=== PATIENT | female | born 1970 | race Caucasian/White ===

== ENCOUNTER 2024-02-29 08:44 | Outpatient (AMB) | payer OTHER, SELFPAY ==
--- NOTE | 2024-02-29 08:49 | AM.OFFWIN_ITS ---
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 Intake Note: pt is here today for yeast infection started 1 month ago Patient Tobacco Use Status: Current everyday Tobacco user Allergies No Known Allergies Allergy (Verified 02/29/24 08:58) Do you need a note to return to daycare/school/sports/work: No HPI HPI Comments History of Present Illness Details Patient presents to the walk in for sick visit reports vaginal itching, burning and white discharge for nearly one month Denies chance of , denies concern for STI denies abd pain, back pain, nausea, vomiting, diarrhea, fevers, chills Endorses polydipsia and polyuria. Denies syncope, weakness, dizziness, blurry vision, headaches family HX of DM, patient has not been diagnosed in the past but has not seen a pcp in 10 years [facility] Social History Patient Tobacco Use Status: Current everyday Tobacco user Review of Systems Const All systems reviewed & are unremarkable except as noted in HPI and below Physical Exam Vital Signs: Last Vital Signs Temp 97.4 F 02/29/24 08:51 Pulse 94 02/29/24 08:51 BP 130/80 02/29/24 08:51 Pulse Ox 96 02/29/24 08:51 Oxygen Delivery Method Room Air 02/29/24 08:51 BMI result Body Mass Index 48.9 General: awake, alert, oriented. Answers questions appropriately. Fully engaged in examination. Skin: warm, dry, intact HEENT: Normocephalic. Hearing intact. Cardiac: External chest normal in appearance. Respiratory: No cough, audible wheezing or stridor. Abdomen: without gross distension. Soft, nontender. No guarding. Pelvic exam declined. MS: No obvious swelling or deformities. Neurological: Oriented to person, place, time and situation. Thought process intact. No gait abnormalities appreciated. Psychiatric: Appropriate mood and affect. Good judgment and insight. Results AMB Urinalysis, Automated UA Leukoctes 0 Luis/uL Last Edit by Roshan Lemus MA on 02/29/24 09:23 UA Nitrite Negative Last Edit by Roshan Lemus MA on 02/29/24 09:23 UA Urobilinogen 0.2 mg/dL Last Edit by Roshan Lemus MA on 02/29/24 09:23 UA Protein 0 mg/dL Last Edit by Roshan Lemus MA on 02/29/24 09:23 UA pH 6.0 Last Edit by Roshan Lemus MA on 02/29/24 09:23 UA Blood 0 Mateo/uL Last Edit by Roshan Lemus MA on 02/29/24 09:23 UA Specific [place] 1.010 Last Edit by Roshan Lemus MA on 02/29/24 09:23 UA Ketone Negative Last Edit by Roshan Lemus MA on 02/29/24 09:23 UA Bilirubin 0 mg/dL Last Edit by Roshan Lemus MA on 02/29/24 09:23 UA Glucose 1000 mg/dL Last Edit by Roshan Lemus MA on 02/29/24 09:23 Results Reviewed Results Reviewed: Laboratory Last Values Urine pH (Auto) 6.0 02/29/24 09:22 Specific [place] (Auto) 1.010 02/29/24 09:22 Urine Protein (Auto) 0 mg/dL 02/29/24 09:22 Glucose (UA)(Auto) 1000 mg/dL 02/29/24 09:22 Urine Ketones (Auto) Negative 02/29/24 09:22 Urine Blood (Auto) 0 Mateo/uL 02/29/24 09:22 Urine Nitrite (Auto) Negative 02/29/24 09:22 Urine Bilirubin (Auto) 0 mg/dL 02/29/24 09:22 Urine Urobilinogen (Auto) 0.2 mg/dL 02/29/24 09:22 Leukocyte Esterase (Auto) 0 Luis/uL 02/29/24 09:22 UA reviewed: Negative leuks, negative nitrites. 3+ glucose. Assessment & Plan Assessment & Plan (1) Vaginal yeast infection: Code(s): B37.31 - Acute candidiasis of vulva and vagina (2) Glycosuria: Code(s): R81 - Glycosuria (3) Diabetes: Code(s): E11.9 - Type 2 diabetes mellitus without complications (4) Diabetes education, encounter for: Code(s): Z71.89 - Other specified counseling Plan Fluconazole 150mg po as directed Random glucose 267, hemoglobin A1c 10.6. These results were reviewed with the patient. Will start on metformin 500 mg p.o. b.i.d.. Patient advised on use and potential side effects. follow up with pcp latisha, staff assisted in getting her an appointment on 03/10/2024. Stressed the importance of making sure she gets to this appointment. Lengthy discussion with the patient regarding new diagnosis of diabetes and treatment plan. Recommend lifestyle modifications including dietary changes and increased exercise. Will need eye exam and foot exam. Patient to establish care with these specialty providers. Patient verbalized understanding. Return to walk-in for any new or worsening symptoms Follow up with pcp as planned Discussed red flag symptoms and when to seek treatment in the ER. Orders: Orders Hemoglobin A1c Today R63.1 - Polydipsia Complete Blood Count Auto Diff Today R63.1 - Polydipsia Comprehensive Met. Panel Today R63.1 - Polydipsia Medications: New fluconazole may repeat second dose 72 hrs after first dose if symptoms persist 150 mg PO Q3D 2 tabs 0RF 2 doses Coding Level of Care Code New Pt Level 4 (43736) Diagnoses Vaginal yeast infection B37.31 Glycosuria R81 Diabetes E11.9 Diabetes education, encounter for Z71.89
[2024-02-29 08:51] VITALS: BP 130/80; PULSE 94; TEMP 36.3; O2SAT 96; BMI 48.9
== END 2024-02-29 09:45 | disposition home or self-care (01) ==
PROVIDERS: Visit Provider Registered Nurse Emergency
DX: B37.31 Acute candidiasis of vulva and vagina (principal); R81 Glycosuria; E11.9 Type 2 diabetes mellitus without complications; Z71.89 Other specified counseling
CPT/HCPCS: 99204

== ENCOUNTER 2024-02-29 09:34 | Outpatient (REF) | payer OTHER, SELFPAY ==
[2024-02-29 10:58] LABS: MANUAL DIFF FLAG NO
[2024-02-29 11:04] LABS: Basophils Absolute Auto 0.1 X10*3/uL (0.0-0.2); Basophils Percent Auto 0.7 % (0-2); Eosinophils Absolute Auto 0.2 X10*3/uL (0.0-0.4); Eosinophils Percent Auto 2.7 % (0-4); Hematocrit 38.5 % (37.0-47.0); Hemoglobin 10.4 g/dl (12.0-16.0); Imm Gran Abs Auto 0.03 X10*3/uL (0.00-0.03); Imm Gran Pct Auto 0.3 % (0.0-0.4); Lymphocytes Percent Auto 21.9 % (20-40); Mean Corpuscular Hemoglobin 17.9 pg (27.0-33.0); Mean Corpuscular Volume 66.2 fL (80.0-98.0); Monocytes Absolute Auto 0.6 X10*3/uL (0.1-1.2); Neutrophils Absolute Auto 6.1 x10*3/uL (2.0-8.3); Neutrophils Percent Auto 67.4 % (45-73); Platelet Count 279 X10*3/uL (160-400); Red Blood Count 5.82 X10*6/uL (4.20-5.50); Red Cell Distribution Width 19.8 % (11.0-16.0)
[2024-02-29 11:17] LABS: Estimated Average Glucose 258 mg/dL; Hemoglobin A1c % 10.6 % (<6.0)
[2024-02-29 11:18] LABS: Alanine Aminotransferase 51 U/L (0-31); Albumin Level 4.1 g/dL (3.5-5.0); Alkaline Phosphatase 110 U/L (39-117); Anion Gap 14 (12-20); Aspartate Amino Transferase 43 U/L (5-31); Bilirubin Total 0.4 mg/dL (0.0-1.0); Blood Urea Nitrogen 10 mg/dL (9-16); Calcium 9.7 mg/dL (8.4-10.2); Carbon Dioxide 27 mmol/L (22-29); Chloride 101 mmol/L (96-108); Estimated Glomerular Filt Rate > 60; Glucose Random 267 mg/dL (60-115); Potassium 4.3 mmol/L (3.3-5.1); Sodium 138 mmol/L (135-145); Total Protein 8.1 g/dL (6.5-8.0)
== END 2024-02-29 09:35 | disposition home or self-care (01) ==
LOC: HO.HMGCLDS 09:34
PROVIDERS: Visit Provider Registered Nurse Emergency
DX: R63.1 Polydipsia (principal)
CPT/HCPCS: 36415; 80053; 83036; 85025

== ENCOUNTER 2024-03-10 08:40 | Outpatient (AMB) | payer OTHER, SELFPAY ==
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
[2024-03-10 08:56] VITALS: BP 118/74; PULSE 85; RESP 16; TEMP 36.9; O2SAT 98; BMI 49.6
== END 2024-03-10 10:06 | disposition home or self-care (01) ==
PROVIDERS: Visit Provider Internal Medicine
DX: B37.31 Acute candidiasis of vulva and vagina (principal); R81 Glycosuria; E11.65 Type 2 diabetes mellitus with hyperglycemia; F40.298 Other specified phobia; Z71.89 Other specified counseling
CPT/HCPCS: 99214

== ENCOUNTER 2024-03-10 10:10 | Outpatient (REF) | payer OTHER, SELFPAY ==
[2024-03-10 12:27] LABS: Appearance Urine Cloudy; Color Urine Yellow; Glucose Urine UA >=1000 mg/dL (Negative); Leukocyte Esterase Urine Negative (Negative); Nitrite Urine Positive (Negative); PH 5.5 (5.0-9.0); UMIC TRIGGER UACC YES; Urine Blood Negative (Negative); Urine Ketones Negative (Negative); Urine Protein Negative (Neg-Trace)
[2024-03-10 13:01] LABS: Bacteria Urine 4+ (None Seen); Hyaline Casts Urine 0-2 /LPF (0-2); RBC Urine 0-2 /HPF (0-2); UACC Culture Trigger YES; WBC Urine 0-5 /HPF (0-5)
== END 2024-03-10 10:11 | disposition home or self-care (01) ==
LOC: HO.WFDLDS 10:10
PROVIDERS: Visit Provider Internal Medicine
DX: F40.298 Other specified phobia (principal); E11.9 Type 2 diabetes mellitus without complications; R81 Glycosuria
CPT/HCPCS: 81001; 81003; 87086; 87147

== ENCOUNTER 2024-04-05 08:26 | Outpatient (REF) | payer OTHER, SELFPAY ==
--- NOTE | ~2024-04-05 | MM_ITS ---
EXAMINATION: MM SCREENING DIGITAL BREAST TOMOSYNTHESIS, BILATERAL CLINICAL INFORMATION: Screening. Asymptomatic. COMPARISON: Mammography: This study is compared with prior exams dating back to 2015 TECHNIQUE: Digital breast tomosynthesis is performed in both the craniocaudal and mediolateral oblique views along with computer-aided detection (CAD). Synthesized 2D images are generated from the tomosynthesis. FINDINGS: There are scattered areas of fibroglandular density (ACR BI-RADS breast composition Category b). There are no significant masses, abnormal calcifications, or other abnormalities. MM/MM tomosynthesis screening BI IMPRESSION: No mammographic evidence of malignancy. ASSESSMENT: BI-RADS BI-RADS 1 - Negative RECOMMENDATION: Routine annual mammography screening. 1 year F/U This examination should not preclude the clinical evaluation of a suspicious palpable abnormality. This patient's information was entered into a reminder system with a target due date for their next mammogram.
== END 2024-04-05 08:27 | disposition home or self-care (01) ==
LOC: HO.MAMMO 08:26
PROVIDERS: PCP Internal Medicine; Visit Provider Internal Medicine
DX: Z12.31 Encounter for screening mammogram for malignant neoplasm of breast (principal)
CPT/HCPCS: 77063; 77067

== ENCOUNTER → 2024-04-05 08:45 | Outpatient (BNV) | payer OTHER, SELFPAY | PROVIDERS: PCP Internal Medicine; Visit Provider Radiology Diagnostic Radiology | DX: Z12.31 Encounter for screening mammogram for malignant neoplasm of breast (principal) | CPT/HCPCS: 77063; 77067 ==

== ENCOUNTER 2024-05-17 08:39 | Outpatient (AMB) | payer OTHER, SELFPAY ==
[2024-05-17 09:00] VITALS: BP 133/67; PULSE 80; O2SAT 98; BMI 45.3
--- NOTE | 2024-05-17 09:00 | MHC.PC.OV ---
Vital Signs 05/17/24 09:00 Height 5 ft 3 in Weight 256 lb BMI 45.3 BP 133/67 Blood Pressure Location Lt brachial Position Sitting Pulse 80 Pulse Source Pulse Oximeter Pulse Oximetry (%) 98 Oxygen Delivery Method Room Air Intake Visit Reasons: DM 1/2 h Intake Note: Patient is here to discuss DM. Patient reports she is needs for sensors and would like to discuss medications and the ability to get ahold of the office. Advertising Traffic Manager Required: No Accompanied by: Self / Same As Patient Allergies No Known Allergies Allergy (Verified 05/17/24 09:07) Tobacco use date assessed: 03/10/24 Dental Screening Dental Screen Date: 03/10/24 HPI HPI Comments History of Present Illness Details 54 year old female with a past medical history of obesity, pmh gastric bypass, anemia, type 2 diabetes presenting for follow up Type 2 diabetes: Doing much better with glucose control. Reports most fasting glucose 100-150. No readings <70. She is phobic of needles. She is doing well on 2.5mg mounjaro weekly. Missing doses but mostly complianct with metformin ROS CONSTITUTIONAL: Denies weight loss, fever and chills. HEENT: Denies changes in vision and hearing. RESPIRATORY: Denies SOB and cough. CV: Denies palpitations and CP GI: Denies abdominal pain, nausea, vomiting and diarrhea. : Denies dysuria and urinary frequency. MSK: Denies new myalgia and joint pain. SKIN: Denies rash and pruritus. NEUROLOGICAL: Denies headache PSYCHIATRIC: Denies recent changes in mood. PHYSICAL EXAM: GENERAL: Alert and oriented x 3. NAD EYES: EOMI. Anicteric. HENT: Moist mucous membranes. No scleral icterus. No cervical lymphadenopathy. LUNGS: Clear to auscultation bilaterally. CARDIOVASCULAR: Regular rate and rhythm. No murmur. No JVD. ABDOMEN: Soft, non-tender +bs EXTREMITIES: No edema. Non-tender. SKIN: No rashes or lesions. Warm. NEUROLOGIC: No focal neurological deficits. CN II-XII grossly intact PSYCHIATRIC: Cooperative. 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 Hunter Olivo, Monique Middleton, Melo Sandhu and colleagues, with an educational zackary from [employer]. Physical exam (Primary Care) Vital Signs: Last Vital Signs Pulse 80 05/17/24 09:00 BP 133/67 05/17/24 09:00 Pulse Ox 98 05/17/24 09:00 Oxygen Delivery Method Room Air 05/17/24 09:00 BMI result Body Mass Index 45.3 Tobacco/Smoking Status: Tobacco use Status Tobacco use date assessed 03/10/24 05/17/24 09:09 Patient Tobacco Use Status Current everyday Tobacco 05/17/24 09:09 e-Cigarette/Vaping Use Never Used 05/17/24 09:09 Thrive Assessment: Date of Thrive Assessment Date Thrive assessed 03/10/24 05/17/24 09:09 Results AMB Hemoglobin A1c AMB Hemoglobin A1c 7.5 % Last Edit by Kaleigh Matthews CMA on 05/17/24 09:37 Results Reviewed Results Reviewed: Laboratory Last Values Hgb A1c (Clinic) 7.5 % (4.0-6.0) H 05/17/24 09:36 Assessment and Plan Assessment & Plan (1) Diabetes: Code(s): E11.9 - Type 2 diabetes mellitus without complications Qualifiers: Diabetes mellitus complication status: with hyperglycemia Diabetes mellitus half-way insulin use: without dedicated intermodal truck driver use Diabetes mellitus type: type 2 Qualified Code(s): E11.65 - Type 2 diabetes mellitus with hyperglycemia Plan: continue metformin, start mounjaro (2) Anemia: Code(s): D64.9 - Anemia, unspecified Qualifiers: Anemia type: unspecified type Qualified Code(s): D64.9 - Anemia, unspecified Plan: Referral to GI pending Orders: Orders AMB Hemoglobin A1c 05/17/24 E11.9 - Type 2 diabetes mellitus without complications Medications: New pen needle, diabetic (BD Ultra-Fine [place] Pen Needle) As directed 100 ea 3RF insulin glargine (Lantus Solostar U-100 Insulin) 10 units (0.1 mL) subcut QPM 15 mL 3RF Changed From FreeStyle Juan Pablo 3 Sensor (blood-glucose sensor) DIRECTED 1 ea 0RF NS E11.9 - Type 2 diabetes mellitus without complications, F40.298 - Other specified phobia, Z71.89 - Other specified counseling, Z79.4 - terminal press operator (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 of insulin To FreeStyle Juan Pablo 3 Sensor (blood-glucose sensor) DIRECTED change every 14 days 6 ea 3RF NS E11.9 - Type 2 diabetes mellitus without complications, F40.298 - Other specified phobia, Z71.89 - Other specified counseling, Z79.4 - terminal press operator (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 of insulin Refilled metformin ER 1,000 mg (2 x 500 mg) PO BID 360 tabs 3RF 90 days tirzepatide (Mounjaro) 5 mg (0.5 mL) subcut QWEEK 6 mL 3RF 12 weeks Discontinued metformin Discontinued Reason: Doctor's Order 500 mg PO BID 60 tabs 11RF Coding Level of Care Code Est Pt Level 4 (94641) Diagnoses Type 2 diabetes mellitus with hyperglycemia, without long-term current use of insulin E11.65 Diabetes mellitus complication status: with hyperglycemia Diabetes mellitus half-way insulin use: without dedicated intermodal truck driver use Diabetes mellitus type: type 2 Anemia, unspecified type D64.9 Anemia type: unspecified type
== END 2024-05-17 09:42 | disposition home or self-care (01) ==
PROVIDERS: PCP Internal Medicine; Visit Provider Internal Medicine
DX: E11.9 Type 2 diabetes mellitus without complications (principal)
CPT/HCPCS: 83036; 99214

== ENCOUNTER 2024-05-17 09:57 | Outpatient (REF) | payer OTHER, SELFPAY ==
[2024-05-17 11:15] LABS: MANUAL DIFF FLAG NO
[2024-05-17 11:24] LABS: Appearance Urine Cloudy; Color Urine Yellow; Glucose Urine UA Negative (Negative); Leukocyte Esterase Urine Trace (Negative); Nitrite Urine Positive (Negative); PH 5.5 (5.0-9.0); UMIC TRIGGER UACC YES; Urine Blood Negative (Negative); Urine Ketones Negative (Negative); Urine Protein Negative (Neg-Trace)
[2024-05-17 11:27] LABS: Basophils Absolute Auto 0.1 X10*3/uL (0.0-0.2); Basophils Percent Auto 0.9 % (0-2); Eosinophils Absolute Auto 0.2 X10*3/uL (0.0-0.4); Eosinophils Percent Auto 2.7 % (0-4); Hematocrit 40.3 % (37.0-47.0); Hemoglobin 11.2 g/dl (12.0-16.0); Imm Gran Abs Auto 0.02 X10*3/uL (0.00-0.03); Imm Gran Pct Auto 0.3 % (0.0-0.4); Lymphocytes Absolute Auto 1.9 X10*3/uL (1.2-4.9); Lymphocytes Percent Auto 24.6 % (20-40); Mean Corpuscular HGB Conc 27.8 g/dl (31.0-35.0); Mean Corpuscular Hemoglobin 18.2 pg (27.0-33.0); Mean Corpuscular Volume 65.5 fL (80.0-98.0); Mean Platelet Volume 9.8 fL (9.4-12.3); Monocytes Absolute Auto 0.6 X10*3/uL (0.1-1.2); Monocytes Percent Auto 7.5 % (2-11); Platelet Count 341 X10*3/uL (160-400); Red Blood Count 6.15 X10*6/uL (4.20-5.50); Red Cell Distribution Width 20.5 % (11.0-16.0); White Blood Count 7.8 X10*3/uL (4.8-10.8)
[2024-05-17 11:33] LABS: Estimated Average Glucose 154 mg/dL
[2024-05-17 11:43] LABS: Bacteria Urine 4+ (None Seen); Hyaline Casts Urine 0-2 /LPF (0-2); RBC Urine 0-2 /HPF (0-2); UACC Culture Trigger YES
[2024-05-17 12:10] LABS: Alanine Aminotransferase 35 U/L (0-31); Albumin Level 4.3 g/dL (3.5-5.0); Alkaline Phosphatase 90 U/L (39-117); Anion Gap 14 (12-20); Aspartate Amino Transferase 32 U/L (5-31); Bilirubin Total 0.4 mg/dL (0.0-1.0); Blood Urea Nitrogen 11 mg/dL (9-16); Calcium 9.6 mg/dL (8.4-10.2); Carbon Dioxide 26 mmol/L (22-29); Chloride 104 mmol/L (96-108); Cholesterol 121 mg/dL (<200); Estimated Glomerular Filt Rate > 60; Glucose Random 100 mg/dL (60-115); HDL Cholesterol 36 mg/dL (>40); Iron 27 mcg/dL (30-160); LDL Cholesterol Calculated 66 mg/dL (<100); Percent Iron Saturation 6 % (15-50); Potassium 4.2 mmol/L (3.3-5.1); Sodium 140 mmol/L (135-145); Total Iron Binding Capacity 443 mcg/dL (228-428); Triglycerides 95 mg/dL (<150); Unsaturated Iron Binding 416 ug/dL
[2024-05-17 12:46] LABS: Folate 8.6 ng/mL (> or = 4.0); Vitamin B12 310 pg/mL (200-900)
== END 2024-05-17 09:58 | disposition home or self-care (01) ==
LOC: HO.WFDLDS 09:57
PROVIDERS: Visit Provider Internal Medicine
DX: E11.9 Type 2 diabetes mellitus without complications (principal); Z71.89 Other specified counseling; B37.31 Acute candidiasis of vulva and vagina; R63.1 Polydipsia; R81 Glycosuria; D64.9 Anemia, unspecified
CPT/HCPCS: 36415; 80053; 80061; 81001; 82607; 82746; 83036; 83540; 85025; 87086; 87088; 87186

== ENCOUNTER 2024-09-16 08:23 | Outpatient (AMB) | payer OTHER, SELFPAY ==
--- NOTE | 2024-09-16 08:26 | MHC.PC.OV ---
Vital Signs 09/16/24 08:28 Height 5 ft 3 in Weight 248 lb BMI 43.9 BP 116/76 Blood Pressure Location Lt brachial Position Sitting Pulse 101 H Pulse Source Pulse Oximeter Pulse Oximetry (%) 97 Oxygen Delivery Method Room Air Intake Visit Reasons: diabetes 3 month recheck cholesterol Intake Note: Three months follow up. Urinary frequency. Allergies No Known Allergies Allergy (Verified 09/16/24 08:26) Tobacco use date assessed: 03/10/24 Dental Screening Dental Screen Date: 03/10/24 HPI HPI Comments History of Present Illness Details 54 year old female with a past medical history of obesity, pmh gastric bypass, anemia, type 2 diabetes presenting for follow up Type 2 diabetes: Todays A1C 6.1%Doing much better with glucose control. Reports most fasting glucose 100-150. No readings <70. She is phobic of needles. She is doing well on 5mg mounjaro weekly, 1000mg metformin and insulin. She would like to increase the mounjaro. Mammo UTD 06/2024 Cologuard is at her house ROS CONSTITUTIONAL: Denies weight loss, fever and chills. HEENT: Denies changes in vision and hearing. RESPIRATORY: Denies SOB and cough. CV: Denies palpitations and CP GI: Denies abdominal pain, nausea, vomiting and diarrhea. : Denies dysuria and urinary frequency. MSK: Denies new myalgia and joint pain. SKIN: Denies rash and pruritus. NEUROLOGICAL: Denies headache PSYCHIATRIC: Denies recent changes in mood. PHYSICAL EXAM: GENERAL: Alert and oriented x 3. NAD EYES: EOMI. Anicteric. HENT: Moist mucous membranes. No scleral icterus. No cervical lymphadenopathy. LUNGS: Clear to auscultation bilaterally. CARDIOVASCULAR: Regular rate and rhythm. No murmur. No JVD. ABDOMEN: Soft, non-tender +bs EXTREMITIES: No edema. Non-tender. SKIN: No rashes or lesions. Warm. NEUROLOGIC: No focal neurological deficits. CN II-XII grossly intact PSYCHIATRIC: Cooperative. 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 1. Little interest or pleasure in doing things: not at all 2. Feeling down, depressed, or hopeless: not at all 3. Trouble falling or staying asleep, or sleeping too much: more than half the days 4. Feeling tired or having little energy: several days 5. Poor appetite or overeating: several days 6. Feeling bad about yourself - or that you are a failure or have let yourself or your family down: not at all 7. Trouble concentrating on things, such as reading the newspaper or watching television: not at all 8. Moving or speaking so slowly that other people could have noticed. Or the opposite - being so fidgety or restless that you have been moving around a lot more than usual: not at all 9. Thoughts that you would be better off or of hurting yourself in some way: not at all Total score: 4 Depression Screening Interpretation: Negative Depression Screening Done: Yes 32500 - PHQ-9 Billing: Yes Source: Developed by Drs. Hunter Olivo, Monique Middleton, Melo Sandhu and colleagues, with an educational zackary from [employer]. Thrive Questionnaire Date Thrive assessed: 03/10/24 I am a: Patient What is your living situation today?: I have a steady place to live Within the past 12 months, did the food you bought not last and you didn't have the money to get more?: Sometimes True Within the past 12 months, did you worry whether your food would run out before you got money to buy more?: Often true Do you have trouble paying for medicines?: Yes Do you have trouble getting transportation to medical appointments?: Yes Do you have trouble paying your heating and electricity bill?: No Do you have trouble taking care of your child, family member or friend?: No Do you have trouble with day-to-day activities such as bathing, preparing meals, shopping, managing finances, etc.?: No Are you currently unemployed and looking for a job?: Yes Are you interested in more education?: No Please select the resources that you would like help with: Paying for medicine and Utilities Currently or been in a relationship where the following occur: I choose not to answer THRIVE Score: 3 AUDIT C Alcohol Use Questionnaire (AUDIT-C) 1. How often do you have a drink containing alcohol?: Never Total Score: 0 ERI-7 AMB Questionnaire ERI-7 Date ERI - 7 assessed: 03/10/24 Feeling nervous, anxious, or on edge: 0 = Not at all Not being able to stop or control worryin = Not at all Worrying too much about different things: 1 = Several days Trouble relaxin = Several days Being so restless that it is hard to sit still: 0 = Not at all Becoming easily annoyed or irritable: 1 = Several days Feeling afraid as if something awful might happen: 0 = Not at all Total ERI-7 score (0-4 normal; 5-9 mild; 10-14 moderate; 15-21 severe): 3 Source: Developed by Drs. Hunter Olivo, Monique Middleton, Melo Sandhu and colleagues, with an educational zackary from [employer]. Physical exam (Primary Care) Vital Signs: Last Vital Signs Pulse 101 H 09/16/24 08:28 BP 116/76 09/16/24 08:28 Pulse Ox 97 09/16/24 08:28 Oxygen Delivery Method Room Air 09/16/24 08:28 BMI result Body Mass Index 43.9 Tobacco/Smoking Status: Tobacco use Status Tobacco use date assessed 03/10/24 09/16/24 08:34 Patient Tobacco Use Status Current everyday Tobacco 09/16/24 08:34 e-Cigarette/Vaping Use Never Used 09/16/24 08:34 PHQ-9: PHQ-9 Score PHQ-9: Total score 4 09/16/24 08:52 Depression Screening Interpretation: Negative Thrive Assessment: Date of Thrive Assessment Date Thrive assessed 03/10/24 09/16/24 08:34 Currently or been in a relationship where the following occur: I choose not to answer Results AMB Urinalysis Dipstick UR Leukocytes Negative Last Edit by Crys Messina CMA on 09/16/24 08:44 UR Nitrite Positive Last Edit by Crys Messina CMA on 09/16/24 08:44 UR Urobilinogen Normal Last Edit by Crys Messina, AWAIS on 09/16/24 08:44 UR Protein Negative Last Edit by Crys Messina, AWAIS on 09/16/24 08:44 UR Ph 5.0 Last Edit by Crys Messina, AWAIS on 09/16/24 08:44 UR Blood Negative Last Edit by Crys Messina, [employer] on 09/16/24 08:44 UR Specific [place] 1.015 Last Edit by Crys Messina, AWAIS on 09/16/24 08:44 UR Ketone Negative Last Edit by Crys Messina, [employer] on 09/16/24 08:44 UR Bilirubin Negative Last Edit by Crys Messina, AWAIS on 09/16/24 08:44 UR Glucose Negative Last Edit by Crys Msesina, AWAIS on 09/16/24 08:44 AMB Hemoglobin A1c AMB Hemoglobin A1c 6.1 % Last Edit by Crys Messina, AAWIS on 09/16/24 08:45 Results Reviewed Results Reviewed: Laboratory Last Values Hgb A1c (Clinic) 6.1 % (4.0-6.0) H 09/16/24 08:42 Urine pH (Clinic) 5.0 09/16/24 08:42 Specific [place] (Clinic) 1.015 09/16/24 08:42 Ur Protein (Clinic) Negative 09/16/24 08:42 Ur Ketones (Clinic) Negative 09/16/24 08:42 Urine Blood (Clinic) Negative 09/16/24 08:42 Urine Nitrite Positive 09/16/24 08:42 Urine Bilirubin (Clinic) Negative 09/16/24 08:42 Urobilinogen (Clinic) Normal 09/16/24 08:42 Leukocyte Esterase (Clinic) Negative 09/16/24 08:42 Urine Glucose (Clinic) Negative 09/16/24 08:42 Coding Level of Care Code Est Pt Level 4 (39457) Diagnoses Insulin dependent type 2 diabetes mellitus, controlled E11.9; Z79.4 Acute cystitis without hematuria N30.00 Urinary tract infection type: acute cystitis Hematuria presence: without hematuria Additional Codes PHQ-9 - 52187 - PHQ-9 Billing: Yes ([id number]) Assessment & Plan Assessment & Plan (1) Insulin dependent type 2 diabetes mellitus, controlled: Code(s): E11.9 - Type 2 diabetes mellitus without complications; Z79.4 - shelter (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 of insulin Category: Medical Plan: Controlled Hold metformin, increase mounjaro (2) UTI (urinary tract infection): Code(s): N39.0 - Urinary tract infection, site not specified Category: Medical Qualifiers: Urinary tract infection type: acute cystitis Hematuria presence: without hematuria Qualified Code(s): N30.00 - Acute cystitis without hematuria Plan: macrobid sent Orders: Orders AMB Urinalysis Dipstick Today R35.0 - Frequency of micturition AMB Hemoglobin A1c Today Z71.89 - Other specified counseling Referrals Ophthalmology Referral E11.9 - Type 2 diabetes mellitus without complications, Z79.4 - meterman (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 of insulin Medications: New tirzepatide (Mounjaro) 7.5 mg (0.5 mL) subcut QWEEK 6 mL 3RF E11.9 - Type 2 diabetes mellitus without complications, Z79.4 - meterman (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 of insulin Refilled nitrofurantoin macrocrystal must administer with a meal/food 100 mg PO BID 14 caps 0RF Discontinued tirzepatide (Mounjaro) Discontinued Reason: Doctor's Order 5 mg (0.5 mL) subcut QWEEK 12 weeks 6 mL 3RF On Hold metformin ER Hold Comment: Doctor's Order 1,000 mg (2 x 500 mg) PO BID 90 days 360 tabs 3RF
[2024-09-16 08:28] VITALS: BP 116/76; PULSE 101; O2SAT 97; BMI 43.9
== END 2024-09-16 09:05 | disposition home or self-care (01) ==
PROVIDERS: PCP Internal Medicine; Visit Provider Internal Medicine
DX: E11.9 Type 2 diabetes mellitus without complications (principal); Z79.4 Long term (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 of insulin; N30.00 Acute cystitis without hematuria; R35.0 Frequency of micturition

== ENCOUNTER → 2024-09-16 08:23 | Outpatient (BNVA) | payer OTHER, SELFPAY | PROVIDERS: PCP Internal Medicine; Visit Provider Internal Medicine | DX: E11.9 Type 2 diabetes mellitus without complications (principal); N30.00 Acute cystitis without hematuria; Z79.4 Long term (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 of insulin | CPT/HCPCS: 81002; 83036; 96127 ==

== ENCOUNTER 2024-11-13 11:19 | Emergency (ER) | payer OTHER, SELFPAY ==
--- NOTE | ~2024-11-13 | XR_ITS ---
CLINICAL HISTORY: right lower back pain, atraumatic 3 views lumbar spine Comparison: None Findings: No fractures or spondylolisthesis. Anterior vertebral body osteophytes Mild degenerative facet arthropathy L3, L4 and L5 Disc spaces are maintained. Pedicles and transverse processes intact. Lordotic curvature is preserved. Normal bone mineralization. Post anterior abdominal wall mesh. Sacroiliac joints unremarkable. Impression: 1. No compression fractures or spondylolisthesis. This document has been electronically signed by: Mohsen Paz MD on 11/13/2024 12:57:18
[2024-11-13 11:27] VITALS: BP 146/80; PULSE 85; RESP 18; TEMP 36.8; O2SAT 99; BMI 42.1
--- NOTE | 2024-11-13 11:27 | ED_ITS ---
HPI - General Adult General Chief complaint: Back Pain/Injury Stated complaint: kidney pain Related Data Previous Rx's ?Medication ?Instructions ?Recorded FreeStyle Juan Pablo 3 [place] #1 ea 03/10/24 (blood-glucose meter,continuous) fluconazole 150 mg tablet 150 mg PO DAILY 7 days #7 tabs 03/10/24 FreeStyle [place] 3 Sensor #6 ea 05/17/24 (blood-glucose sensor) insulin glargine 100 unit/mL (3 10 unit (0.1 mL) subcut QPM #15 mL 05/17/24 mL) subcutaneous pen (Lantus Solostar U-100 Insulin) metformin 500 mg tablet,extended 1,000 mg (2 x 500 mg) PO BID 90 05/17/24 release 24 hr days #360 tabs pen needle, diabetic 32 gauge x #100 ea 05/17/24/32 (BD Ultra-Fine Alba Pen Needle) nitrofurantoin macrocrystal 100 mg 100 mg PO BID #14 caps 09/16/24 capsule tirzepatide 7.5 mg/0.5 mL 7.5 mg (0.5 mL) subcut QWEEK #6 mL 09/16/24 subcutaneous pen injector (Mounjaro) Allergies Allergy/AdvReac Type Severity Reaction Status Date / Time No Known Allergies Allergy Verified 11/13/24 11:29 COUNT INCLUDES THE [facility] Social History Social History (Updated 09/16/24 @ 08:28 by Crys Messina CMA) Housing: House Alcohol intake: current Comment: Twice a year Patient Tobacco Use Status: Current everyday Tobacco user Cigarettes Per Day: 8 e-Cigarette/Vaping Use: Never Used Advance Directives: No Advance Directives Information Provided: No service: No Current occupational status: employed 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 Full HPI, ROS, assessment and treatment plan per primary provider in the Main ED. 54 yo female hx of obesity, anemia, T2DM, s/p gastric bypass here for eval of right lower back pain x months. no urinary sx. has follow up w/ PCP who suspected muscular pain. pain worse w/ movement and ambulation. no radiation. no injury/ trauma. she has not trialed any OTC analgesics. Plan: labs, UA, lumbar xr Reevaluation(s) Reevaluation #1: Patient left the emergency department before myself or any of the other clinicians could review or explain physical exam findings, test results, need or lack there of for additional testing, treatment options, or a treatment plan. > I personally reviewed CBC, CMP, urinalysis and lumbar x-ray. There are no acute findings that would warrant patient notification. Medical Decision Making Lab Data 11/13/24 12:28 11/13/24 12:28 Labs: Lab Results 11/13/24 Range/Units 12:28 WBC 10.1 (4.8-10.8) X10*3/uL RBC 5.87 H (4.20-5.50) X10*6/uL Hgb 11.5 L (12.0-16.0) g/dl Hct 38.6 (37.0-47.0) % MCV 65.8 L (80.0-98.0) fL MCH 19.6 L (27.0-33.0) pg MCHC 29.8 L (31.0-35.0) g/dl RDW 19.4 H (11.0-16.0) % Plt Count 288 (160-400) X10*3/uL MPV 9.1 L (9.4-12.3) fL Immature Gran % (Auto) 0.3 (0.0-0.4) % Neut % (Auto) 58.4 (45-73) % Lymph % (Auto) 30.6 (20-40) % [place] % (Auto) 7.1 (2-11) % Eos % (Auto) 2.9 (0-4) % Baso % (Auto) 0.7 (0-2) % Lymph # (Auto) 3.1 (1.2-4.9) X10*3/uL [place] # (Auto) 0.7 (0.1-1.2) X10*3/uL Eos # (Auto) 0.3 (0.0-0.4) X10*3/uL Baso # (Auto) 0.1 (0.0-0.2) X10*3/uL Abs Immat Gran (auto) 0.03 (0.00-0.03) X10*3/uL Absolute Neuts (auto) 5.9 (2.0-8.3) x10*3/uL Absolute Nucleated RBC 0.000 (0.0-0.012) X10*3/uL Nucleated RBC % (auto) 0.0 (0.0-0.2) /100WBC Sodium 139 (135-145) mmol/L Potassium 3.9 (3.3-5.1) mmol/L Chloride 104 (96-108) mmol/L Carbon Dioxide 27 (22-29) mmol/L Anion Gap 12 (12-20) BUN 14 (9-16) mg/dL Creatinine 0.75 (0.5-1.4) mg/dL Estim Creat Clear Calc 103.2 Estimated GFR > 60 Random Glucose 95 (60-115) mg/dL Calcium 9.1 (8.4-10.2) mg/dL Total Bilirubin 0.4 (0.0-1.0) mg/dL AST 27 (5-31) U/L ALT 24 (0-31) U/L Alkaline Phosphatase 83 (39-117) U/L Total Protein 8.3 H (6.5-8.0) g/dL Albumin 4.2 (3.5-5.0) g/dL Urine Color Yellow Urine Appearance Clear Urine pH 5.5 (5.0-9.0) Ur Specific [place] 1.015 (1.005-1.025) Urine Protein Negative (Neg-Trace) mg/dL Urine Glucose (UA) Negative (Negative) mg/dL Urine Ketones Negative (Negative) mg/dL Urine Blood Negative (Negative) Urine Nitrite Negative (Negative) Ur Leukocyte Esterase Negative (Negative) Discharge Plan Discharge Clinical Impression: Back pain Patient Disposition: Left W/O Completing Treatment Prescriptions: No Action (DME) FreeStyle Juan [place] 3 [place] Misc See Rx Instructions .Route Qty: 1 0RF Rx Instructions: As directed fluconazole 150 mg tablet 150 mg PO DAILY 7 Days Qty: 7 0RF metformin 500 mg tablet extended release 24 hr 1,000 mg PO BID 90 Days Qty: 360 3RF insulin glargine [Lantus Solostar U-100 Insulin] 100 unit/mL (3 mL) insulin pen 10 unit subcut QPM Qty: 15 3RF (DME) FreeStyle [place] 3 Sensor Device See Rx Instructions .ROUTE .COMPLEX Qty: 6 3RF Dose Instruction: DIRECTED Rx Instructions: DIRECTED change every 14 days (DME) pen needle, diabetic [BD Ultra-Fine [place] Pen Needle] 32 gauge x 5/32 needle See Rx Instructions .Route Qty: 100 3RF Rx Instructions: As directed Mounjaro 7.5 mg/0.5 mL pen injector 7.5 mg subcut QWEEK Qty: 6 3RF nitrofurantoin macrocrystal 100 mg capsule 100 mg PO BID Qty: 14 0RF Rx Instructions: must administer with a meal/food
[2024-11-13 12:37] LABS: MANUAL DIFF FLAG NO
[2024-11-13 12:39] LABS: Appearance Urine Clear; Basophils Absolute Auto 0.1 X10*3/uL (0.0-0.2); Basophils Percent Auto 0.7 % (0-2); Color Urine Yellow; Eosinophils Absolute Auto 0.3 X10*3/uL (0.0-0.4); Eosinophils Percent Auto 2.9 % (0-4); Glucose Urine UA Negative (Negative); Hematocrit 38.6 % (37.0-47.0); Hemoglobin 11.5 g/dl (12.0-16.0); Imm Gran Abs Auto 0.03 X10*3/uL (0.00-0.03); Imm Gran Pct Auto 0.3 % (0.0-0.4); Leukocyte Esterase Urine Negative (Negative); Lymphocytes Absolute Auto 3.1 X10*3/uL (1.2-4.9); Lymphocytes Percent Auto 30.6 % (20-40); Mean Corpuscular HGB Conc 29.8 g/dl (31.0-35.0); Mean Corpuscular Hemoglobin 19.6 pg (27.0-33.0); Mean Corpuscular Volume 65.8 fL (80.0-98.0); Mean Platelet Volume 9.1 fL (9.4-12.3); Monocytes Absolute Auto 0.7 X10*3/uL (0.1-1.2); Monocytes Percent Auto 7.1 % (2-11); Neutrophils Absolute Auto 5.9 x10*3/uL (2.0-8.3); Neutrophils Percent Auto 58.4 % (45-73); Nitrite Urine Negative (Negative); PH 5.5 (5.0-9.0); Platelet Count 288 X10*3/uL (160-400); Red Blood Count 5.87 X10*6/uL (4.20-5.50); Red Cell Distribution Width 19.4 % (11.0-16.0); Specific Gravity - Urine 1.015 (1.005-1.025); Urine Blood Negative (Negative); Urine Ketones Negative (Negative); Urine Protein Negative (Neg-Trace); White Blood Count 10.1 X10*3/uL (4.8-10.8)
[2024-11-13 12:59] LABS: Alanine Aminotransferase 24 U/L (0-31); Albumin Level 4.2 g/dL (3.5-5.0); Alkaline Phosphatase 83 U/L (39-117); Anion Gap 12 (12-20); Aspartate Amino Transferase 27 U/L (5-31); Bilirubin Total 0.4 mg/dL (0.0-1.0); Blood Urea Nitrogen 14 mg/dL (9-16); Calcium 9.1 mg/dL (8.4-10.2); Carbon Dioxide 27 mmol/L (22-29); Chloride 104 mmol/L (96-108); Creatinine Clr Calc Pharmacy 103.2; Estimated Glomerular Filt Rate > 60; Glucose Random 95 mg/dL (60-115); Potassium 3.9 mmol/L (3.3-5.1); Sodium 139 mmol/L (135-145); Total Protein 8.3 g/dL (6.5-8.0)
== END 2024-11-13 16:54 | disposition left against medical advice (07) ==
PROVIDERS: Physician Assistant Medical; Emergency Provider Emergency Medicine; PCP Internal Medicine
DX: M54.50 Low back pain, unspecified (principal); E11.9 Type 2 diabetes mellitus without complications; Z79.4 Long term (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 of insulin; Z79.899 Other long term (current) drug therapy
CPT/HCPCS: 36415; 72100; 80053; 81003; 85025; 99282; 99283

== ENCOUNTER → 2024-11-13 11:30 | Outpatient (BNV) | payer OTHER, SELFPAY | PROVIDERS: PCP Internal Medicine; Visit Provider Radiology Diagnostic Radiology | DX: M54.50 Low back pain, unspecified (principal) | CPT/HCPCS: 72100 ==

== ENCOUNTER 2024-11-14 08:18 | Emergency (ER) | payer OTHER, SELFPAY ==
--- NOTE | ~2024-11-14 | CT_ITS ---
EXAMINATION: CT ABDOMEN PELVIS WITHOUT IV CONTRAST HISTORY: right flank pain, r/o colic COMPARISON: There are no prior studies for comparison. TECHNIQUE: CT scan of the abdomen and pelvis was performed without contrast using standard departmental protocol. Coronal and sagittal reformatted images were generated and reviewed. Oral contrast material was not administered per department protocol. This CT exam was performed with one or more of the following dose reduction techniques: automated exposure control, adjustment of the mA and/or kV according to patient size, use of iterative reconstruction technique. DLP: 915 mGy-cm FINDINGS: LOWER CHEST: The visualized lung bases are clear. There is no pleural effusion. CARDIOVASCULATURE: The heart is normal in size. There is no pericardial effusion. LIVER: The liver is normal in size and contour. The liver has an unremarkable unenhanced appearance. GALLBLADDER / BILE DUCTS: The gallbladder is unremarkable. There is no intra or extrahepatic biliary ductal dilatation. SPLEEN: The spleen is normal in size and has an unremarkable unenhanced appearance. PANCREAS: The pancreas has an unremarkable unenhanced appearance. ADRENAL GLANDS: Unremarkable. KIDNEYS/RETROPERITONEUM: No renal or ureteral calculi are identified. There is no hydronephrosis or hydroureter. LYMPH NODES: No retroperitoneal lymphadenopathy is identified in the abdomen or pelvis. VASCULATURE: The abdominal aorta demonstrates atherosclerotic calcification, but is normal in caliber. MESENTERY/PERITONEUM: No free fluid. No masses. There is no free intraperitoneal gas. STOMACH: Post surgical changes are noted involving the stomach. The stomach is collapsed. SMALL BOWEL: The small bowel is normal in caliber. A small bowel anastomosis is noted in the left upper quadrant. COLON: There is a moderate amount of stool throughout the colon. APPENDIX: Normal. URINARY BLADDER/PELVIC ORGANS: The urinary bladder is unremarkable. Uterus is unremarkable unenhanced appearance. BONES / SOFT TISSUES: There is degenerative disc disease of the spine. CT/CT abdomen pelvis wo IV con IMPRESSION: No evidence of nephrolithiasis or ureteral obstruction. Electronically signed by: Hunter Cohn MD 11/14/2024 12:20 PM [facility]
[2024-11-14 08:28] VITALS: BP 119/49; BP 156/88; PULSE 74; PULSE 86; RESP 18; TEMP 37; O2SAT 96; O2SAT 99; BMI 41.6
--- NOTE | 2024-11-14 11:30 | ED_ITS ---
HPI - Abdominal Pain General Chief Complaint: Abdominal Pain Stated Complaint: 5LOW R BACK PAIN X2M,GETTING WORSE, ON/OFF Time Seen by Provider: 11/14/24 10:50 Source: patient Mode of arrival: ambulatory Limitations: no limitations History of Present Illness ED Provider: Gabriela Hairston APRN HPI narrative: this is a 54-year-old female who has history of diabetes, anemia, gastric bypass who presents to the ER with complaints of right lower back pain intermittent for the last 2-3 months that is worsened with position changes. Patient reports she was seen yesterday in triage but did not stay for and evaluation by a provider. She did have labs, urine and a lumbar x-ray. She reports last night she had increasing pain which prompted her to come to the emergency room. She did not try any podr-[id number]-[id number] medications. She denies any radiation of pain. She denies any numbness or tingling in her groin or in her legs. She denies any bowel or bladder incontinence. Denies any fevers or chills. No vomiting or diarrhea or urinary symptoms. No injuries or falls Related Data Previous Rx's ?Medication ?Instructions ?Recorded FreeStyle Juan Pablo 3 [place] #1 ea 03/10/24 (blood-glucose meter,continuous) fluconazole 150 mg tablet 150 mg PO DAILY 7 days #7 tabs 03/10/24 FreeStyle Juan Pablo 3 Sensor #6 ea 05/17/24 (blood-glucose sensor) insulin glargine 100 unit/mL (3 10 unit (0.1 mL) subcut QPM #15 mL 05/17/24 mL) subcutaneous pen (Lantus Solostar U-100 Insulin) metformin 500 mg tablet,extended 1,000 mg (2 x 500 mg) PO BID 90 05/17/24 release 24 hr days #360 tabs pen needle, diabetic 32 gauge x #100 ea 05/17/24 (BD Ultra-Fine Alba Pen Needle) nitrofurantoin macrocrystal 100 mg 100 mg PO BID #14 caps 09/16/24 capsule tirzepatide 7.5 mg/0.5 mL 7.5 mg (0.5 mL) subcut QWEEK #6 mL 09/16/24 subcutaneous pen injector (Jessica) cyclobenzaprine 10 mg tablet 10 mg PO TID PRN muscle spasm #15 11/14/24 tabs Allergies Allergy/AdvReac Type Severity Reaction Status Date / Time No Known Allergies Allergy Verified 11/14/24 08:32 Review of Systems Review of Systems Yes all other systems are reviewed and are negative Constitutional: Reports no additional constitutional complaints, Denies body ache(s), Denies chills, Denies fever(s), Denies headache(s) and Denies weakness Eyes: Reports no additional eye complaints and Denies change in vision Reports system reviewed and no additional complaints, except as documented, Denies dizziness, Denies headache(s), Denies nasal congestion, Denies nasal discharge and Denies neck pain Cardiovascular: Reports no additional cardiovascular complaints, Denies chest pain, Denies leg edema and Denies dyspnea Respiratory: Reports no additional respiratory complaints, Denies cough and Denies dyspnea Gastrointestinal: Reports no additional gastrointestinal complaints, Denies abdominal pain, Denies diarrhea, Denies nausea and Denies vomiting Genitourinary: Reports no additional female genitourinary complaints and Denies urinary incontinence Musculoskeletal: Reports no additional musculoskeletal complaints, Reports back pain, Denies arthralgias, Denies joint swelling, Denies neck pain, Denies numbness and Denies tingling Skin/Breast: Reports system reviewed and no additional complaints, except as docu and Denies rash Reports system reviewed and no additional complaints, except as documented, Denies Abnormal speech present, Denies dizziness, Denies headache(s), Denies numbness, Denies tingling and Denies weakness PMFSH Past Medical History Attestation statement: The following information was validated with the patient. 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 Current occupational exposures/hazards: No Cognitive needs: No Hearing needs: No Vision needs: Yes (glassese) Physical Exam ED Vital Signs: Vital Signs - 24 hr 11/14/24 08:28 Temperature 98.6 F Pulse Rate 74 Respiratory Rate 18 Blood Pressure 119/49 L Pulse Oximetry 96 Oxygen Delivery Method Room Air BMI result Body Mass Index 41.6 Const General: cooperative, healthy appearing, comfortable and no acute distress Orientation/consciousness: patient oriented x3 Limitations: no limitations HENMT Head: Yes normal to inspection Ears: hearing grossly normal bilaterally General nose exam: Normal external nose present Face and sinus: Yes normal facial exam Mouth: Normal oral and palatal mucosa present Throat: Yes posterior oropharynx normal Eyes General: appearance normal, both eyes and all related structures Pupils: Equal, round and reactive pupils present Neck Neck: Yes normal visual inspection Chest Chest palpation & inspection: normal inspection of the chest Resp Effort & Inspection: normal respiratory effort Auscultation: clear to auscultation bilaterally Cardio Rate: regular rate Rhythm: regular rhythm Peripheral pulses: Peripheral pulses 2+ throughout GI Inspection: Yes normal to inspection Palpation (GI): Soft to palpation and nontender Auscultation: normal bowel sounds Back/Spine/Pelvis Other: tenderness to the lumbar right soft tissue and over the right posterior SI joint with compression. Pain is worsened with right straight leg raise. Thoracic/Lumbar Spine: thoracic and lumbar spine normal to inspection Skin General skin exam: no rashes or lesions noted Neuro General: patient oriented x3, moves all extremities, no focal motor deficits and normal sensation to monofilament Cranial nerves: Yes CN's II-XII intact bilaterally, Yes Equal, round and reactive pupils present, Yes Bilaterally intact EOM present, Yes Nystagmus not present, Yes Normal facial strength present and Yes Midline tongue present Cognition (Neuro): normal cognition Speech: No Abnormal speech present Gait exam (Neuro): Normal gait present Motor exam (neuro): 5/5 motor strength present throughout Sensory Exam: Normal double simultaneous stimulation for sensation Deep tendon reflexes (DTR's): Right patellar reflex intensity grade: 2+ and Left patellar reflex intensity grade: 2+ Extrem General: Yes normal to inspection Course Course Course Narrative: CT shows no acute finding. Patient reports pain is improved. Pain review more muscular or related to a lumbar radiculopathy or herniated disc. Those no neurological deficits or red flag symptoms suggest cord compression or cauda equina. patient has no risk factors for epidural abscess. Recommend she fo llow up outpatient with primary care doctor for any continued symptoms that she may need outpatient MRI. Will discharge patient home with muscle relaxants. Reviewed worrisome signs and symptoms of when to return to the emergency room. Comfortable plan for discharge home Medical Decision Making Medical Decision Making [facility] Narrative: this is a 54-year-old female who has history of diabetes, anemia, gastric bypass who presents to the ER with complaints of right lower back pain intermittent for the last 2-3 months that is worsened with position changes. Patient reports she was seen yesterday in triage but did not stay for and evaluation by a provider. She did have labs, urine and a lumbar x-ray. She reports last night she had increasing pain which prompted her to come to the emergency room. She did not try any [id number] medications. She denies any radiation of pain. She denies any numbness or tingling in her groin or in her legs. She denies any bowel or bladder incontinence. Denies any fevers or chills. No vomiting or diarrhea or urinary symptoms. No injuries or falls On exam there is tenderness over the right lumbar soft tissue and over the right SI joint on compression. There is no CVA tenderness. There is no midline lumbar tenderness, step-offs or deformities. Pain is worsened with right straight leg raise. There is no focal abdominal pain. Normal neuro exam with no focal deficits Reviewed labs from yesterday which show a normal CBC and normal CMP, normal liver panel, normal urine. lumbar x-ray shows no compression fracture or spondylolisthesis. there is mild degenerative arthropathy L3 through L5. due to length of symptoms I will obtain a CT abdomen and pelvis. Patient will be provided with analgesia. Differential Diagnosis Differential Diagnoses: The differential diagnosis associated with the presentation includes Lumbar radiculopathy, lumbar strain, herniated disc Low suspicion for epidural abscess with no risk factors of same, no neurological deficits or red flag symptoms Low suspicion for ACS with no reports of chest pain, shortness of breath, diaphoresis or vomiting Low suspicion for pyelonephritis or renal colic with no CVA tenderness, urinary symptoms reported Low suspicion for malignancy with no red flag symptoms, more acute onset Low suspicion for cord compression, cauda equina with normal neurological exam and no red flag symptoms Admission/Observation Consideration of admission/observation: Escalation of care including admission/observation considered Lab Data [facility] Lab Attestation statement: I reviewed the patient's lab results. Independent Interpretation I performed an independent interpretation of an: CT Scan Interpretation: I independently viewed the CT scan agree with the radiology report Radiology Impression Discussion of test interpretation with radiology: I have reviewed the radiologist's reading. Radiologist Impression: [id number] [place] [address] CT Scan Report Signed Patient: Jazzy Spence MR#: [id number] : 1970 Acct:[id number] Age/Sex: 54 / F ADM Date: 11/14/24 Loc: HO.ED Attending Dr: Ordering Physician: Gabriela Hairston NP Date of Service: 11/14/24 Procedure(s): CT abdomen pelvis wo IV con Accession Number(s): [id number] cc: Keila Lindo MD; Gabriela Hairston NP~ Report Number: [id number]: Total DLP = 915.00 mGy-cm EXAMINATION: CT ABDOMEN PELVIS WITHOUT IV CONTRAST HISTORY: right flank pain, r/o colic COMPARISON: There are no prior studies for comparison. TECHNIQUE: CT scan of the abdomen and pelvis was performed without contrast using standard departmental protocol. Coronal and sagittal reformatted images were generated and reviewed. Oral contrast material was not administered per department protocol. This CT exam was performed with one or more of the following dose reduction techniques: automated exposure control, adjustment of the mA and/or kV according to patient size, use of iterative reconstruction technique. DLP: 915 mGy-cm FINDINGS: LOWER CHEST: The visualized lung bases are clear. There is no pleural effusion. CARDIOVASCULATURE: The heart is normal in size. There is no pericardial effusion. LIVER: The liver is normal in size and contour. The liver has an unremarkable unenhanced appearance. GALLBLADDER / BILE DUCTS: The gallbladder is unremarkable. There is no intra or extrahepatic biliary ductal dilatation. SPLEEN: The spleen is normal in size and has an unremarkable unenhanced appearance. PANCREAS: The pancreas has an unremarkable unenhanced appearance. ADRENAL GLANDS: Unremarkable. KIDNEYS/RETROPERITONEUM: No renal or ureteral calculi are identified. There is no hydronephrosis or hydroureter. LYMPH NODES: No retroperitoneal lymphadenopathy is identified in the abdomen or pelvis. VASCULATURE: The abdominal aorta demonstrates atherosclerotic calcification, but is normal in caliber. MESENTERY/PERITONEUM: No free fluid. No masses. There is no free intraperitoneal gas. STOMACH: Post surgical changes are noted involving the stomach. The stomach is collapsed. SMALL BOWEL: The small bowel is normal in caliber. A small bowel anastomosis is noted in the left upper quadrant. COLON: There is a moderate amount of stool throughout the colon. APPENDIX: Normal. URINARY BLADDER/PELVIC ORGANS: The urinary bladder is unremarkable. Uterus is unremarkable unenhanced appearance. BONES / SOFT TISSUES: There is degenerative disc disease of the spine. CT/CT abdomen pelvis wo IV con IMPRESSION: No evidence of nephrolithiasis or ureteral obstruction. Independent Historian Clinical information obtained from an independent historian. History obtained from or confirmed by: Other ( Daughter) External Record Review External record reviewed: Outside ED record Prescription Management I considered prescription management with: Pain Medication Medications Administered Discontinued Medications Generic Name Dose Route Start Last Admin Trade Name Freq PRN Reason Stop Dose Admin Morphine Sulfate 4 mg 11/14/24 11:05 11/14/24 11:35 Morphine Sulfate 4 Mg/Ml Cartridge IM 11/14/24 11:06 4 mg ONCE ONE Administration Protocol Discharge Plan Discharge Clinical Impression: Back pain Patient Disposition: Home, Self-Care Instructions: Back Pain (ED) Additional Instructions: you were given a copy of her CT scan report Your lab work and urine were normal from yesterday Apply heat or ice to her back Gentle stretching No heavy lifting or bending If pain continues you should follow up with primary care doctor as you might need an outpatient MRI Continue Tylenol home for pain Take the muscle relaxant as needed. The muscle relaxant could make you sleepy so no driving while taking Prescriptions: New cyclobenzaprine 10 mg tablet 10 mg PO TID PRN (Reason: muscle spasm) Qty: 15 0RF No Action (DME) FreeStyle Juan Pablo 3 [place] Misc See Rx Instructions .Route Qty: 1 0RF Rx Instructions: As directed fluconazole 150 mg tablet 150 mg PO DAILY 7 Days Qty: 7 0RF metformin 500 mg tablet extended release 24 hr 1,000 mg PO BID 90 Days Qty: 360 3RF insulin glargine [Lantus Solostar U-100 Insulin] 100 unit/mL (3 mL) insulin pen 10 unit subcut QPM Qty: 15 3RF (DME) FreeStyle [place] 3 Sensor Device See Rx Instructions .ROUTE .COMPLEX Qty: 6 3RF Dose Instruction: DIRECTED Rx Instructions: DIRECTED change every 14 days (DME) pen needle, diabetic [BD Ultra-Fine [place]ba Pen Needle] 32 gauge x 5/32 needle See Rx Instructions .Route Qty: 100 3RF Rx Instructions: As directed Mounjaro 7.5 mg/0.5 mL pen injector 7.5 mg subcut QWEEK Qty: 6 3RF nitrofurantoin macrocrystal 100 mg capsule 100 mg PO BID Qty: 14 0RF Rx Instructions: must administer with a meal/food Referrals: Keila Lindo MD [Primary Care Provider] - 1 week Print Language: Macanese
[2024-11-14] MEDS: Morphine Sulfate 4 MG/ML CARTRIDGE IM (11:35)
[2024-11-14 13:18] VITALS: BP 119/49; PULSE 74; RESP 18; TEMP 37; O2SAT 96
== END 2024-11-14 13:18 | disposition home or self-care (01) ==
PROVIDERS: Emergency Provider Emergency Medicine; PCP Internal Medicine
DX: M54.50 Low back pain, unspecified (principal); E11.9 Type 2 diabetes mellitus without complications; D64.9 Anemia, unspecified; R10.9 Unspecified abdominal pain; Z79.899 Other long term (current) drug therapy
CPT/HCPCS: 74176; 96372; 99282; 99284; J2270

== ENCOUNTER → 2024-11-14 11:05 | Outpatient (BNV) | payer OTHER, SELFPAY | PROVIDERS: Emergency Provider Emergency Medicine; PCP Internal Medicine; Visit Provider Radiology Diagnostic Radiology | DX: R10.9 Unspecified abdominal pain (principal) | CPT/HCPCS: 74176 ==

== ENCOUNTER 2024-12-20 08:52 | Outpatient (AMB) | payer OTHER, SELFPAY ==
--- NOTE | 2024-12-20 09:07 | A.OFFPC_ITS ---
Vital Signs 12/20/24 09:11 Height 5 ft 3 in Weight 233 lb 8 oz BMI 41.4 BP 121/69 Blood Pressure Location Lt brachial Position Sitting Respiration 16 Pulse 83 Pulse Source Pulse Oximeter Pulse Oximetry (%) 98 Oxygen Delivery Method Room Air Intake Visit Reasons: DM Intake Note: Follow diabetes. Went [place] ER for side pain. Need Mounjaro 7.5 mg sent to [facility]. Perinatal Tech Required: No Allergies No Known Allergies Allergy (Verified 12/20/24 09:08) Tobacco use date assessed: 03/10/24 Dental Screening Dental Screen Date: 03/10/24 HPI HPI Comments History of Present Illness Details 54 year old female with a past medical h istory of obesity, pmh gastric bypass, anemia, type 2 diabetes presenting for follow up Type 2 diabetes: Todays A1C 5.8%. Last A1C 6.1%. Doing much better with glucose control. Reports most fasting glucose 100-150. No readings <70. She is phobic of needles. She is doing well on 7.5mg mounjaro weekly, 1000mg metformin and insulin. She has lost 15 pounds since August Patient was seen in the ER for right flank pain. Normal non contrast CT. Still having twinges of pain intermittently Mammo UTD 06/2024 Cologuard is at her house ROS CONSTITUTIONAL: Denies weight loss, fever and chills. HEENT: Denies changes in vision and hearing. RESPIRATORY: Denies SOB and cough. CV: Denies palpitations and CP GI: see HPI : Denies dysuria and urinary frequency. MSK: Denies new myalgia and joint pain. SKIN: Denies rash and pruritus. NEUROLOGICAL: Denies headache PSYCHIATRIC: Denies recent changes in mood. PHYSICAL EXAM: GENERAL: Alert and oriented x 3. NAD EYES: EOMI. Anicteric. HENT: Moist mucous membranes. No scleral icterus. No cervical lymphadenopathy. LUNGS: Clear to auscultation bilaterally. CARDIOVASCULAR: Regular rate and rhythm. No murmur. No JVD. ABDOMEN: Soft, non-tender +bs EXTREMITIES: No edema. Non-tender. SKIN: No rashes or lesions. Warm. NEUROLOGIC: No focal neurological deficits. CN II-XII grossly intact PSYCHIATRIC: Cooperative. 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 1. Little interest or pleasure in doing things: not at all 2. Feeling down, depressed, or hopeless: not at all 3. Trouble falling or staying asleep, or sleeping too much: several days 4. Feeling tired or having little energy: not at all 5. Poor appetite or overeating: several days 6. Feeling bad about yourself - or that you are a failure or have let yourself or your family down: not at all 7. Trouble concentrating on things, such as reading the newspaper or watching television: not at all 8. Moving or speaking so slowly that other people could have noticed. Or the opposite - being so fidgety or restless that you have been moving around a lot more than usual: not at all 9. Thoughts that you would be better off or of hurting yourself in some way: not at all Total score: 2 Depression Screening Interpretation: Negative Depression Screening Done: Yes 92930 - PHQ-9 Billing: Yes Source: Developed by Drs. Hunetr Olivo, Monique Middleton, Melo Sandhu and colleagues, with an educational zackary from [employer]. Thrive Questionnaire Date Thrive assessed: 03/10/24 I am a: Patient What is your living situation today?: I have a steady place to live Within the past 12 months, did the food you bought not last and you didn't have the money to get more?: Sometimes True Within the past 12 months, did you worry whether your food would run out before you got money to buy more?: Sometimes True Do you have trouble paying for medicines?: Yes Do you have trouble getting transportation to medical appointments?: Yes Do you have trouble paying your heating and electricity bill?: Yes Do you have trouble taking care of your child, family member or friend?: No Do you have trouble with day-to-day activities such as bathing, preparing meals, shopping, managing finances, etc.?: No Are you currently unemployed and looking for a job?: No Are you interested in more education?: No Please select the resources that you would like help with: Transportation Currently or been in a relationship where the following occur: No concerns reported THRIVE Score: 4 AUDIT C Alcohol Use Questionnaire (AUDIT-C) 1. How often do you have a drink containing alcohol?: Monthly or less 2. How many drinks containing alcohol do you have on a typical day when you are drinking?: 1 or 2 3. How often do you have six or more drinks on one occasion?: Never Total Score: 1 ERI-7 AMB Questionnaire ERI-7 Date ERI - 7 assessed: 03/10/24 Feeling nervous, anxious, or on edge: 0 = Not at all Not being able to stop or control worryin = Not at all Worrying too much about different things: 0 = Not at all Trouble relaxin = Several days Being so restless that it is hard to sit still: 0 = Not at all Becoming easily annoyed or irritable: 1 = Several days Feeling afraid as if something awful might happen: 0 = Not at all Total ERI-7 score (0-4 normal; 5-9 mild; 10-14 moderate; 15-21 severe): 2 Source: Developed by Drs. Hunter Olivo, Monique Middleton, Melo Sandhu and colleagues, with an educational zackary from [employer]. Physical exam (Primary Care) Vital Signs: Last Vital Signs Pulse 83 12/20/24 09:11 Resp 16 12/20/24 09:11 BP 121/69 12/20/24 09:11 Pulse Ox 98 12/20/24 09:11 Oxygen Delivery Method Room Air 12/20/24 09:11 BMI result Body Mass Index 41.4 Tobacco/Smoking Status: Tobacco use Status Tobacco use date assessed 03/10/24 12/20/24 09:10 Patient Tobacco Use Status Current everyday Tobacco 12/20/24 09:10 e-Cigarette/Vaping Use Never Used 12/20/24 09:10 PHQ-9: PHQ-9 Score PHQ-9: Total score 2 12/20/24 09:10 Depression Screening Interpretation: Negative Thrive Assessment: Date of Thrive Assessment Date Thrive assessed 03/10/24 12/20/24 09:10 Currently or been in a relationship where the following occur: No concerns reported Results AMB Hemoglobin A1c AMB Hemoglobin A1c 5.8 % Last Edit by Crys Messina CMA on 12/20/24 09:25 Coding Level of Care Code Est Pt Level 4 (28070) Diagnoses Insulin dependent type 2 diabetes mellitus, controlled E11.9; Z79.4 Right flank pain R10.9 Additional Codes PHQ-9 - 66330 - PHQ-9 Billing: Yes ([id number]) Assessment & Plan Assessment & Plan (1) Insulin dependent type 2 diabetes mellitus, controlled: Code(s): E11.9 - Type 2 diabetes mellitus without complications; Z79.4 - nursing home (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 of insulin Category: Medical Plan: Controlled on current medication. No hypoglycemia. continue current medications. 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
[2024-12-20 09:11] VITALS: BP 121/69; PULSE 83; RESP 16; O2SAT 98; BMI 41.4
--- OUTSIDE RECORDS SUMMARY | 2024-12-20 09:32 | XMS_ITS ---
Author Name [facility] Organization Unknown History of Medication Use Medication Directions Dispensed Refills Start Date End Date Stat benzonatate (TESSALON) 200 MG capsule Take 1 capsule (200 mg total) by mouth 3 (three) times a day as needed for cough. 03/17/2023 active proMETHAZINE-dextrome thorphan (proMETHAZINE-DM) 6.25-15 MG/5ML syrup Take 5 mL by mouth 4 times daily (every 6 hours) as needed for cough. 12/19/2022 active Problems Problem Status Onset Date Problem Type Date of Resoluti on Source Bronchitis active [facility]
== END 2024-12-20 09:32 | disposition home or self-care (01) ==
PROVIDERS: PCP Internal Medicine; Visit Provider Internal Medicine
DX: E11.9 Type 2 diabetes mellitus without complications (principal); Z79.4 Long term (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 of insulin; R10.9 Unspecified abdominal pain

== ENCOUNTER → 2024-12-20 08:52 | Outpatient (BNVA) | payer OTHER, SELFPAY | PROVIDERS: PCP Internal Medicine; Visit Provider Internal Medicine | DX: E11.9 Type 2 diabetes mellitus without complications (principal); E66.9 Obesity, unspecified; R10.9 Unspecified abdominal pain; Z86.2 Personal history of diseases of the blood and blood-forming organs and certain disorders involving the immune mechanism; Z79.4 Long term (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 of insulin; Z68.41 Body mass index [BMI] 40.0-44.9, adult | CPT/HCPCS: 83036; 96127; 99212 ==

== ENCOUNTER 2024-12-20 09:45 | Outpatient (REF) | payer OTHER, SELFPAY ==
[2024-12-20 11:30] LABS: MANUAL DIFF FLAG NO
[2024-12-20 11:33] LABS: Basophils Percent Auto 0.5 % (0-2); Eosinophils Absolute Auto 0.4 X10*3/uL (0.0-0.4); Eosinophils Percent Auto 4.9 % (0-4); Hematocrit 40.5 % (37.0-47.0); Hemoglobin 11.8 g/dl (12.0-16.0); Imm Gran Abs Auto 0.02 X10*3/uL (0.00-0.03); Imm Gran Pct Auto 0.2 % (0.0-0.4); Lymphocytes Absolute Auto 2.5 X10*3/uL (1.2-4.9); Lymphocytes Percent Auto 30.4 % (20-40); Mean Corpuscular HGB Conc 29.1 g/dl (31.0-35.0); Mean Corpuscular Hemoglobin 19.6 pg (27.0-33.0); Mean Corpuscular Volume 67.4 fL (80.0-98.0); Mean Platelet Volume 9.5 fL (9.4-12.3); Monocytes Absolute Auto 0.6 X10*3/uL (0.1-1.2); Monocytes Percent Auto 7.4 % (2-11); Neutrophils Absolute Auto 4.7 x10*3/uL (2.0-8.3); Neutrophils Percent Auto 56.6 % (45-73); Platelet Count 318 X10*3/uL (160-400); Red Blood Count 6.01 X10*6/uL (4.20-5.50); Red Cell Distribution Width 18.9 % (11.0-16.0); White Blood Count 8.2 X10*3/uL (4.8-10.8)
[2024-12-20 12:02] LABS: Iron 18 mcg/dL (30-160); Percent Iron Saturation 4 % (15-50); Total Iron Binding Capacity 424 mcg/dL (228-428); Unsaturated Iron Binding 406 ug/dL
== END 2024-12-20 09:46 | disposition home or self-care (01) ==
LOC: HO.WFDLDS 09:45
PROVIDERS: Visit Provider Internal Medicine
DX: Z86.2 Personal history of diseases of the blood and blood-forming organs and certain disorders involving the immune mechanism (principal)
CPT/HCPCS: 36415; 83540; 85025

== ENCOUNTER 2024-12-29 14:18 | Outpatient (REF) | payer OTHER, SELFPAY | END 2024-12-29 14:19 | disposition home or self-care (01) | LOC: HO.HMGCX 14:18 | PROVIDERS: PCP Internal Medicine; Visit Provider Internal Medicine | DX: R10.9 Unspecified abdominal pain (principal) | CPT/HCPCS: 76775 ==

== ENCOUNTER → 2024-12-29 14:19 | Outpatient (BNV) | payer OTHER, SELFPAY | PROVIDERS: PCP Internal Medicine; Visit Provider Radiology Diagnostic Radiology | DX: R10.9 Unspecified abdominal pain (principal) | CPT/HCPCS: 76775 ==

== ENCOUNTER 2025-02-21 09:08 | Outpatient (AMB) | payer OTHER, SELFPAY ==
--- NOTE | 2025-02-21 10:29 | AM.OFFWIN_ITS ---
Intake Vital Signs 02/21/25 10:31 BP 132/80 Blood Pressure Location Rt brachial Position Sitting Pulse 76 Pulse Source Pulse Oximeter Pulse Oximetry (%) 97 Oxygen Delivery Method Room Air Intake Visit Reasons: EP back, neck, arm pain [phone] Intake Note: Patient here for neck pain that radiates down the left arm that has been going on for a couple of 1 week. Patient Tobacco Use Status: Current everyday Tobacco user Allergies No Known Allergies Allergy (Verified 02/21/25 10:30) Do you need a note to return to daycare/school/sports/work: No HPI HPI Comments History of Present Illness Details History of Present Illness - The patient is a 55-year-old female pr esenting with neck and left arm pain. - Onset was one week ago after lifting a n item overhead at work, leading to neck pain. - Symptoms have worsened and now include pain radiating down the left arm, with numbness and tingling in the fingers. - Subcutaneous bumps along the left arm are reported as painful. - Treatments attempted include ibuprofen and exercises without significant relief. - Self-care measures have also included hot showers and cold compresses but have provided only temporary relief. - The work-related duties, involving ext ended shifts, potentially aggravated the symptoms. Physical Exam General: Cooperative, healthy appearing, comfortable, no acute distress and well developed Orientation: Patient oriented x3 Limitations: No limitations Head: Normal to inspection Ears: Hearing grossly normal bilaterally Nose: Normal External nose present Face and sinus: Normal facial exam Eyes: Appearance normal, both eyes and all related structures Neck: Tenderness on the left side, TTP left trapezius, spasms noted on left trapezius Respiratory: Normal respiratory effort and able to speak in complete sentences. 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 Current occupational exposures/hazards: No Cognitive needs: No Hearing needs: No Vision needs: Yes (glassese) Review of Systems Const All systems reviewed & are unremarkable except as noted in HPI and below Physical Exam Vital Signs: Last Vital Signs Pulse 76 02/21/25 10:31 BP 132/80 02/21/25 10:31 Pulse Ox 97 02/21/25 10:31 Oxygen Delivery Method Room Air 02/21/25 10:31 Assessment & Plan Assessment & Plan (1) Neck pain on left side: Code(s): M54.2 - Cervicalgia Plan: The patient is prescribed meloxicam once daily for inflammation and pain management, alongside a muscle relaxant to address possible muscle spasms. Avoidance of additional NSAIDs is emphasized, with acetaminophen allowed for further pain relief if necessary. Rest and temporary modification of activities, including work duties, are advised to aid recovery. The patient should rest and avoid aggravating activities, expecting to use the muscle relaxant, especially before sleep, to aid with rest and recovery. A work note is provided to assist with managing work-related physical demands during recovery. Patient was informed and verbally consented to the use of an ambient scribe for clinic note documentation during this visit. (2) Left arm pain: Code(s): M79.602 - Pain in left arm Plan: as above (3) Cervical paraspinal muscle spasm: Code(s): M62.838 - Other muscle spasm Plan: as above Medications: New meloxicam 15 mg PO DAILY 15 tabs 0RF cyclobenzaprine 5 mg PO Q8H PRN 20 tabs 0RF Muscle Spasm Coding Level of Care Code Est Pt Level 3 (35873) Diagnoses Neck pain on left side M54.2 Left arm pain M79.602 Cervical paraspinal muscle spasm M62.838
[2025-02-21 10:31] VITALS: BP 132/80; PULSE 76; O2SAT 97
== END 2025-02-21 10:58 | disposition home or self-care (01) ==
PROVIDERS: PCP Internal Medicine; Visit Provider Physician Assistant
DX: M54.2 Cervicalgia (principal); M79.602 Pain in left arm; M62.838 Other muscle spasm

== ENCOUNTER → 2025-02-21 09:08 | Outpatient (BNVA) | payer OTHER, SELFPAY | PROVIDERS: PCP Internal Medicine; Visit Provider Physician Assistant | DX: M54.2 Cervicalgia (principal); M79.602 Pain in left arm; M62.838 Other muscle spasm | CPT/HCPCS: 99212 ==

== ENCOUNTER 2025-06-23 08:03 | Outpatient (AMB) | payer OTHER, SELFPAY ==
--- OUTSIDE RECORDS SUMMARY | 2025-06-23 08:09 | XMS_ITS ---
Author Name [facility] Organization Unknown History of Medication Use Medication Directions Dispensed Refills Start Date End Date Stat us benzonatate (TESSALON) 200 MG capsule Take 1 capsule (200 mg total) by mouth 3 (three) times a day as needed for cough. 03/17/2023 active proMETHAZINE-dextrome thorphan (proMETHAZINE-DM) 6.25-15 MG/5ML syrup Take 5 mL by mouth 4 times daily (every 6 hours) as needed for cough. 12/19/2022 active Allergies Allergen Reaction Severity Comment Documented Date Source Statu s TRAMADOL HIVES 03/17/2023 [facility] active Problems Problem Status Onset Date Problem Type Date of Resoluti on Source Bronchitis active EncounterDiagnosisAct [facility] Encounters Encounter Type Encounter Reason Primary Diagnosis Location Date Ambulatory Bronchitis, not specified as acute or chronic [email or web address] 03/17/2023 Ambulatory Acute upper respiratory infection, unspecified [email or web address] 12/19/2022 Care Team Organization Name Specialty Phone Email Start Date End Da te [email or web address] 12/19/2022 12/19/2022 [email or web address] 12/19/2022 [facility] 12/07/2022 06/13/2024
--- NOTE | 2025-06-23 08:13 | MHC.PC.OV ---
Vital Signs 06/23/25 08:22 Height 5 ft 3 in Weight 227 lb 4 oz BMI 40.3 BP 108/72 Blood Pressure Location Lt brachial Position Sitting Respiration 14 Pulse 97 Pulse Source Pulse Oximeter Pulse Oximetry (%) 97 Oxygen Delivery Method Room Air Intake Visit Reasons: CPE Intake Note: Physical. 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 Required: No Allergies No Known Allergies Allergy (Verified 06/23/25 08:16) Tobacco use date assessed: 06/23/25 Dental Screening Dental Screen Date: 06/23/25 Did you have a dental visit in the last 12 months?: No Did you have a dental problem in the last 6 months where you did not have access to dental care?: No Was dental information given to patient?: Patient declined (Has dentures) HPI HPI Comments History of Present Illness Details 55 year old female with a past medical history of obesity, pmh gastric bypass, anemia, type 2 diabetes presenting for annual exam Type 2 diabetes: Todays A1C 5.7%. Has not been checking glucose. No readings <70. She is phobic of needles. She is doing well on 7.5mg mounjaro weekly, 1000mg metformin (holding) Patient has history of low back pain, lumbar fracture. Her breasts are an F. This contributes to back pain, rash under the breast. She uses otc topicals, sending prescription today. Has done PT in remote past for her back GI: GERD-taking omeprazole. c/o Constipation. She uses a stool softenor at times. She is having BM q2-3 day. Mammo 06/2024 Cologuard is at her house-she wants colonoscopy referral now ROS see HPI. PHYSICAL EXAM: GENERAL: Alert and oriented x 3. NAD EYES: EOMI. Anicteric. HENT: Moist mucous membranes. No scleral icterus. No cervical lymphadenopathy. LUNGS: Clear to auscultation bilaterally. CARDIOVASCULAR: Regular rate and rhythm. No murmur. No JVD. ABDOMEN: Soft, non-tender +bs EXTREMITIES: No edema. Non-tender. SKIN: No rashes or lesions. Warm. NEUROLOGIC: No focal neurological deficits. CN II-XII grossly intact PSYCHIATRIC: Cooperative. 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 Current occupational exposures/hazards: No Cognitive needs: No Hearing needs: No Vision needs: Yes (glassese) Questionnaire Thrive Questionnaire Date Thrive assessed: 12/20/24 I am a: Patient What is your living situation today?: I have a steady place to live Within the past 12 months, did the food you bought not last and you didn't have the money to get more?: Sometimes True Within the past 12 months, did you worry whether your food would run out before you got money to buy more?: Sometimes True Do you have trouble paying for medicines?: Yes Do you have trouble getting transportation to medical appointments?: Yes Do you have trouble paying your heating and electricity bill?: Yes Do you have trouble taking care of your child, family member or friend?: No Do you have trouble with day-to-day activities such as bathing, preparing meals, shopping, managing finances, etc.?: No Are you currently unemployed and looking for a job?: No Are you interested in more education?: No Please select the resources that you would like help with: Transportation Currently or been in a relationship where the following occur: No concerns reported THRIVE Score: 4 ERI-7 AMB Questionnaire ERI-7 Date ERI - 7 assessed: 03/10/24 Source: Developed by Drs. Hunter Olivo, Monique Middleton, Melo Sandhu and colleagues, with an educational zackary from [employer]. Physical exam (Primary Care) Vital Signs: Last Vital Signs Pulse 97 06/23/25 08:22 Resp 14 06/23/25 08:22 BP 108/72 06/23/25 08:22 Pulse Ox 97 06/23/25 08:22 Oxygen Delivery Method Room Air 06/23/25 08:22 BMI result Body Mass Index 40.3 Tobacco/Smoking Status: Tobacco use Status Tobacco use date assessed 06/23/25 06/23/25 08:22 Patient Tobacco Use Status Current everyday Tobacco 06/23/25 08:15 e-Cigarette/Vaping Use Never Used 06/23/25 08:15 Thrive Assessment: Date of Thrive Assessment Date Thrive assessed 12/20/24 06/23/25 08:15 Currently or been in a relationship where the following occur: No concerns reported Coding Level of Care Code Est Pt Prev Care 40-64y(49815) Diagnoses Physical exam Z00.00 Macromastia N62 Type 2 diabetes mellitus with hyperglycemia, without long-term current use of insulin E11.65 Diabetes mellitus type: type 2 Diabetes mellitus intermediate insulin use: without assistant terminal manager use Diabetes mellitus complication status: with hyperglycemia Assessment & Plan Assessment & Plan (1) Physical exam: Code(s): Z00.00 - Encounter for general adult medical examination without abnormal findings (2) Macromastia: Code(s): N62 - Hypertrophy of breast Category: Medical (3) Diabetes: Code(s): E11.9 - Type 2 diabetes mellitus without complications Category: Medical Qualifiers: Diabetes mellitus type: type 2 Diabetes mellitus intermediate insulin use: without assistant terminal manager use Diabetes mellitus complication status: with hyperglycemia Qualified Code(s): E11.65 - Type 2 diabetes mellitus with hyperglycemia Plan CPE Interval history reviewed Diabetes is well controlled Macromastia-referral plastic. increase mounjaro constipation-linzess ordered Orders: Orders Complete Blood Count Auto Diff Today D64.9 - Anemia, unspecified, E11.65 - Type 2 diabetes mellitus with hyperglycemia, R53.83 - Other fatigue Comprehensive Met. Panel Today D64.9 - Anemia, unspecified, E11.65 - Type 2 diabetes mellitus with hyperglycemia, R53.83 - Other fatigue TSH reflex Free T4 Today D64.9 - Anemia, unspecified, E11.65 - Type 2 diabetes mellitus with hyperglycemia, R53.83 - Other fatigue Hemoglobin A1c Today D64.9 - Anemia, unspecified, E11.65 - Type 2 diabetes mellitus with hyperglycemia, R53.83 - Other fatigue MM screening mammo BI Today Z12.31 - Encounter for screening mammogram for malignant neoplasm of breast AMB Hemoglobin A1c Today E11.65 - Type 2 diabetes mellitus with hyperglycemia Lipid Panel Today D64.9 - Anemia, unspecified, E11.65 - Type 2 diabetes mellitus with hyperglycemia, R53.83 - Other fatigue Referrals Plastic Surgery Referral M54.50 - Low back pain, unspecified, N62 - Hypertrophy of breast, Z87.81 - Personal history of (healed) traumatic fracture Gastroenterology Referral C18.9 - Malignant neoplasm of colon, unspecified Medications: New Mounjaro (tirzepatide) 10 mg (0.5 mL) subcut QWEEK 6 mL 3RF NS Mounjaro (tirzepatide) 10 mg (0.5 mL) subcut QWEEK 6 mL 3RF NS clotrimazole-betamethasone 1-0.05 % 1 appl topical BID 45 grams 3RF omeprazole 20 mg PO DAILY 90 caps 3RF Linzess (linaclotide) 145 mcg PO DAILY 90 caps 3RF NS Discontinued tirzepatide (Mounjaro) Discontinued Reason: Doctor's Order 7.5 mg (0.5 mL) subcut QWEEK 6 mL 3RF E11.9 - Type 2 diabetes mellitus without complications, Z79.4 - manager long term care (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 of insulin On Hold FreeStyle Juan [place] 3 [place] (blood-glucose,php programmer,cont) Hold Comment: Dose Change As directed 1 ea 0RF NS E11.9 - Type 2 diabetes mellitus without complications, F40.298 - Other specified phobia, R81 - Glycosuria, Z71.89 - Other specified counseling FreeStyle Juan [place] 3 Sensor (blood-glucose sensor) Hold Comment: Dose Change DIRECTED change every 14 days 6 ea 3RF NS E11.9 - Type 2 diabetes mellitus without complications, F40.298 - Other specified phobia, Z71.89 - Other specified counseling, Z79.4 - manager long term care (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 of insulin
[2025-06-23 08:22] VITALS: BP 108/72; PULSE 97; RESP 14; O2SAT 97; BMI 40.3
== END 2025-06-23 09:12 | disposition home or self-care (01) ==
LOC: HO.HMCFM 08:04
PROVIDERS: PCP Internal Medicine; Visit Provider Internal Medicine
DX: Z00.00 Encounter for general adult medical examination without abnormal findings (principal); N62 Hypertrophy of breast; E11.65 Type 2 diabetes mellitus with hyperglycemia

== ENCOUNTER → 2025-06-23 08:03 | Outpatient (BNVA) | payer OTHER, SELFPAY | PROVIDERS: PCP Internal Medicine; Visit Provider Internal Medicine | DX: Z00.00 Encounter for general adult medical examination without abnormal findings (principal); E11.65 Type 2 diabetes mellitus with hyperglycemia; N62 Hypertrophy of breast; D64.9 Anemia, unspecified; K21.9 Gastro-esophageal reflux disease without esophagitis; E66.9 Obesity, unspecified; Z68.41 Body mass index [BMI] 40.0-44.9, adult; Z79.899 Other long term (current) drug therapy; Z98.84 Bariatric surgery status | CPT/HCPCS: 99396 ==

== ENCOUNTER 2025-08-10 08:12 | Outpatient (REF) | payer OTHER, SELFPAY | END 2025-08-10 08:13 | disposition home or self-care (01) | LOC: HO.MAMMO 08:12 | PROVIDERS: PCP Internal Medicine; Visit Provider Internal Medicine | DX: Z12.31 Encounter for screening mammogram for malignant neoplasm of breast (principal) | CPT/HCPCS: 77063; 77067 ==

== ENCOUNTER → 2025-08-10 08:15 | Outpatient (BNV) | payer OTHER, SELFPAY | PROVIDERS: PCP Internal Medicine; Visit Provider Radiology Body Imaging | DX: Z12.31 Encounter for screening mammogram for malignant neoplasm of breast (principal) | CPT/HCPCS: 77063; 77067 ==